=== PATIENT | male | born 1960 | race Caucasian/White ===

== ENCOUNTER → 2017-07-07 | Outpatient (CLI) | payer BC ==
[~2017-07-07] MED LIST: LEVO25TA30 PO; OXYC1TAB3 PO
[2017-07-07 12:24] LABS: ALT/SGPT 31 U/L (12-78); BLOOD UREA NITROGEN 18 mg/dl (7-18); BUN/CREATININE RATIO 17.1 (10-20); CALCIUM 8.6 mg/dl (8.5-10.1); CARBON DIOXIDE 27 mmol/L (21-32); CHLORIDE 106 mmol/L (98-107); CHOLESTEROL 141 mg/dl (0-200); CREATININE 1.04 mg/dl (0.60-1.40); GLUCOSE 97 mg/dl (70-99); SODIUM 139 mmol/L (136-145)
[2017-07-07 12:35] LABS: ALB/GLOB RATIO 1.1 (0.9-2); ALKALINE PHOSPHATASE 57 U/L (45-117); AST/SGOT 19 U/L (15-37); CHOLESTEROL/HDL RATIO 2.3; HDL CHOLESTEROL 62 mg/dl; LDL CHOLESTEROL CALCULATED 70 mg/dl; TRIGLYCERIDES 45 mg/dl (0-150); VERY LOW DENSITY LIPOPROT CALC 9 mg/dl
[2017-07-07 12:41] LABS: BASO % 0.6 %; BASO ABS # 0.03 K/uL (0-0.2); COMPLETE YES; EOS % 3.6 %; HEMATOCRIT 43.5 % (42-52); IG% 0.4 %; LYMPH % 27.2 %; LYMPH ABS # 1.42 K/uL (1.2-3.4); MEAN CELL VOLUME 91.8 fL (80-100); MEAN CORPUSCULAR HEMOGLOBIN 31.2 pg (25-34); MEAN PLATELET VOLUME 9.8 fL (7.4-10.4); MONO % 8.8 %; NEUT % 59.4 %; PLATELET COUNT 278 K/uL (130-400); RED BLOOD COUNT 4.74 M/uL (4.7-6.1); WHITE BLOOD COUNT 5.23 K/uL (4.8-10.8)
== END | disposition home or self-care (01) ==
LOC: C.LABBFT 09:57
PROVIDERS: ATTEND Internal Medicine
DX: Z00.00 Encounter for general adult medical examination without abnormal findings (principal); E03.9 Hypothyroidism, unspecified; R06.09 Other forms of dyspnea

== ENCOUNTER → 2017-10-22 | Outpatient (CLI) | payer BC ==
--- NOTE | 2017-10-22 16:11 | DIAGNOSTIC IMAGING REPORT ---
TEMPORAL ORB/SELLA/TEMP W/O CLINICAL HISTORY: CONDUCTIVE RT HEARING LOSS there is loss TECHNIQUE: Transaxial acquisition with multi axial reformatted images. COMPARISON STUDY: None FINDINGS: The structures of the middle ear are unremarkable. The middle air ossicles are aligned anatomically. The scutum is intact. Tympanic membranes are unremarkable. The attics are clear. Mastoid air cells are clear. Mild mucosal thickening of the left frontal and ethmoid sinuses. Soft tissue opacification left ostiomeatal unit. Minimal hypertrophic change of the left nasal turbinates. The orbital margins are intact. IMPRESSION: 1. Normal study of the temporal bones and internal auditory canals/middle ears 2. Mild mucosal thickening of the left frontal and ethmoid sinuses. 3. Soft tissue occlusion left ostiomeatal unit. 4. Minimal/mild hypertrophic change left nasal turbinates. The above report was generated using voice recognition software. It may contain grammatical, syntax or spelling errors. Electronically signed by: Guicho Verma M.D. 10/22/2017 4:09 PM Dictated Date/Time: 10/22/2017 4:04 PM
== END | disposition home or self-care (01) ==
LOC: C.CTS 15:05
PROVIDERS: ATTEND Physician Assistant
DX: H90.11 Conductive hearing loss, unilateral, right ear, with unrestricted hearing on the contralateral side (principal)